=== PATIENT | male | born 1990 | race Hispanic/Latino ===

== ENCOUNTER 2020-07-24 05:44 | Emergency (ER) | payer BC, SELFPAY ==
[2020-07-24 06:16] LABS: Absolute Lymphocytes (CBC) 1.3 K/uL (0.7-4.9); Hematocrit 42.5 % (39.6-49.0); Lymphocytes % 15.9 % (15.3-44.8); MPV 7.4 fL (7.6-11.3)
[2020-07-24] MEDS ORDERED: NA CHLORIDE 0.9% 1,000 ML ONE (06:20)
[2020-07-24] MEDS ORDERED: KETOROLAC 30 MG/ML INJ ONE (06:20)
[2020-07-24] MEDS ORDERED: PROMETHAZINE INJ 25 MG/ML AMP ONE (06:20)
[2020-07-24 06:35] LABS: ALT/SGPT 69 U/L (12-78); AST/SGOT 35 U/L (15-37); Albumin 3.8 g/dL (3.4-5.0); Alkaline Phosphatase 116 U/L (45-117); BUN Blood Urea Nitrogen 13 mg/dL (7-18); Bicarbonate 27 mmol/L (21-32); Bilirubin Direct < 0.1 mg/dL (0-0.2); Bilirubin Total 0.3 mg/dL (0.2-1.0); Glucose Level 121 mg/dL (74-106); Lipase 250 U/L (73-393); Potassium 3.9 mmol/L (3.5-5.1); Protein, Total 8.3 g/dL (6.4-8.2); Sodium Level 141 mmol/L (136-145)
--- NOTE | 2020-07-24 07:21 | RAD REPORT ---
EXAM DESCRIPTION: CT - Stone Protocol - 07/24/2020 7:07 am CLINICAL HISTORY: FLANK PAIN COMPARISON: Abdomen Pelvis W Contrast dated 12/27/2015 TECHNIQUE: Axial 5 mm thick images were obtained without oral or IV contrast. The [id number] span s the entirety of the system including uppermost abdomen and lung bases. All CT scans are performed using dose optimization technique as appropriate and may include automated exposure control or mA/KV adjustment according to patient size. FINDINGS: Mild right-sided hydronephrosis of the pelvis and proximal ureter secondary to a 3 mm ston e. No other obstructing or nonobstructing calculi. No suspicious renal masses. Isodense masses and py elonephritis are not excluded on a stone protocol CT scan. No significant adrenal finding. No urinary bladder suspicious finding. Imaged portions of the liver, spleen and pancreas show no suspicious findings on non-contrast imaging . No gallbladder or biliary tree abnormality identified. No suspicious bowel findings. Appendix is normal. No hernia, mass or bulky lymphadenopathy noted. No free air, free fluid or inflammatory stranding. No significant bony abnormality. IMPRESSION: Mild right-sided hydronephrosis secondary to a 3 mm stone in the proximal right ureter. Isodense masses and pyelonephritis are not excluded on stone protocol technique.
--- NOTE | 2020-07-24 07:27 | ER ---
Nurse's Notes [facility] Name: Abhishek Warren Age: 30 yrs Sex: Male : 1990 Arrival Date: 07/24/2020 Time: 05:46 Bed 7 Private MD: Diagnosis: Ureterolithiasis Presentation: 07/24 06:00 Chief complaint: Patient states: I woke up around 2-3AM having this dull pain on my rr5 side going to the front. I vomited twice. no fever, no diarrhea stated. Coronavirus screen: Client denies travel out of the [place] in the last 14 days. At this time, the client does not indicate any symptoms associated with coronavirus-19. Ebola Screen: Patient negative for fever greater than or equal to 101.5 degrees Fahrenheit, and additional compatible Ebola Virus Disease symptoms Patient denies exposure to infectious person. Patient denies travel to an Ebola-affected area in the 21 days before illness onset. Initial Sepsis Screen: Does the patient meet any 2 criteria? No. Patient's initial sepsis screen is negative. Does the patient have a suspected source of infection? No. Patient's initial sepsis screen is negative. Risk Assessment: Do you want to hurt yourself or someone else? Patient reports no desire to harm self or others. Onset of symptoms was July 24, 2020 at 02:00. 06:00 Method Of Arrival: Ambulatory rr5 06:00 Acuity: PHANI 3 rr5 Historical: - Allergies: 06:04 No Known Allergies; rr5 - Home Meds: 06:04 adhd medication [Active]; rr5 - PMHx: 06:04 Asthma; ADHD; rr5 - PSHx: 06:04 None; rr5 - Immunization history:: Adult Immunizations up to date. - Social history:: Smoking status: unknown Patient/guardian denies using alcohol, street drugs. Screenin:06 Abuse screen: Denies threats or abuse. Denies injuries from another. Nutritional rr5 screening: No deficits noted. Tuberculosis screening: No symptoms or risk factors identified. Fall Risk IV access (20 points). Total [place] Fall Scale indicates No Risk (0-24 pts). Assessment: 06:00 General: Appears in no apparent distress. uncomfortable, Behavior is calm, cooperative, rr5 appropriate for age. Pain: Complains of pain in right flank Pain radiates to right upper quadrant and right lower quadrant Pain Quality of pain is described as dull, Pain began suddenly, Is intermittent. Neuro: Level of Consciousness is awake, alert, obeys commands, Oriented to person, place, time, situation. Cardiovascular: Capillary refill < 3 seconds Patient's skin is warm and dry. Respiratory: Airway is patent Respiratory effort is even, unlabored, Respiratory pattern is regular, symmetrical. GI: Abdomen is round obese, Abd is soft and non tender Reports lower abdominal pain, upper abdominal pain, vomiting. : Reports pain in right flank(s). EENT: No signs and/or symptoms were reported regarding the EENT system. Derm: Skin is intact, is healthy with good turgor, Skin temperature is warm. Musculoskeletal: Circulation, motion, and sensation intact. Capillary refill < 3 seconds. 06:30 Reassessment: Patient appears in no apparent distress at this time. Patient is alert, rr5 oriented x 3, equal unlabored respirations, skin warm/dry/pink. Patient states symptoms have improved. 07:38 Reassessment: Patient appears in no apparent distress at this time. Patient and/or ph family updated on plan of care and expected duration. Pain level reassessed. Patient is alert, oriented x 3, equal unlabored respirations, skin warm/dry/pink. Pt d/c home w/ prescriptions. Vital Signs: 06:00 BP 142 / 88; Pulse 89; Resp 19; Temp 98.1; Pulse Ox 98% ; Weight 158.76 kg; Height 5 rr5 ft. 10 in. (177.80 cm); Pain 5/10; 06:44 BP 131 / 62; Pulse 78; Resp 17; Pulse Ox 99% ; Pain 2/10; rr5 07:38 BP 127 / 68; Pulse 71; Resp 18; Temp 97.8; Pulse Ox 100% on R/A; ph 06:00 Body Mass Index 50.22 (158.76 kg, 177.80 cm) rr5 ED Course: 05:46 Patient arrived in ED. ag3 05:47 Feroz Singh MD is Attending Physician. 7 06:00 Ramy Nathan, RN is Primary Nurse. rr5 06:03 Triage completed. rr5 06:04 Arm band placed on right wrist. rr5 06:06 Patient has correct armband on for positive identification. Bed in low position. Call rr5 light in reach. Pulse ox on. NIBP on. 06:06 Inserted saline lock: 20 gauge in right antecubital area, using aseptic technique. rr5 ,using aseptic technique. inserted by mel BUTCHER Blood collected. 07:07 CT Stone Protocol In Process Unspecified. EDMS 07:26 Daryl Santiago MD is Referral Physician. [facility] 07:39 No provider procedures requiring assistance completed. IV discontinued, intact, ph bleeding controlled, No redness/swelling at site. Pressure dressing applied. Administered Medications: 06:05 Drug: Phenergan 12.5 mg Route: IVP; Site: right antecubital; rr5 06:45 Follow up: Response: No adverse reaction rr5 06:05 Drug: NS 0.9% 1000 ml Route: IV; Rate: 1000 ml; Site: right antecubital; rr5 06:47 Follow up: Response: No adverse reaction; IV Status: Completed infusion; IV Intake: rr5 1000ml 06:07 Drug: TORadol 30 mg Route: IVP; Site: right antecubital; rr5 06:45 Follow up: Response: No adverse reaction rr5 Intake: 06:47 IV: 1000ml; Total: 1000ml. rr5 Outcome: 07:26 Discharge ordered by . mh7 07:39 Discharged to home ambulatory. ph 07:39 Condition: good 07:39 Discharge instructions given to patient, Instructed on discharge instructions, follow up and referral plans. medication usage, Demonstrated understanding of instructions, follow-up care, medications, Prescriptions given X 3. 07:39 Patient left the ED. ph Signatures: Dispatcher [employer] EDMT Hue Costa, RN RN ph Lucero Smith Raymond, RN RN rr5 Feroz Singh MD MD 7
--- NOTE | 2020-07-24 07:27 | EDPHYS ---
Physician Documentation [facility] Name: Abhishek Warren Age: 30 yrs Sex: Male : 1990 Arrival Date: 07/24/2020 Time: 05:46 Bed 7 Private MD: ED Physician Feroz Singh HPI: 07/24 06:01 This 30 yrs old Male presents to ER via Unassigned with complaints of mh7 Abdominal Pain. 06:01 The patient complains of pain in the right flank. The pain radiates to the right lower mh7 abdomen. Onset: The symptoms/episode began/occurred today, at 02:00. Modifying factors: The symptoms are alleviated by nothing. the symptoms are aggravated by movement. Associated signs and symptoms: Pertinent positives: nausea, vomiting, Pertinent negatives: diarrhea, dizziness, dysuria, fever, urinary frequency, headache, hematuria, pain radiating to the lower extremities. Severity of pain: At its worst the pain was moderate today, in the emergency department the pain is unchanged. Historical: - Allergies: 06:04 No Known Allergies; rr5 - Home Meds: 06:04 adhd medication [Active]; rr5 - PMHx: 06:04 Asthma; ADHD; rr5 - PSHx: 06:04 None; rr5 - Immunization history:: Adult Immunizations up to date. - Social history:: Smoking status: unknown Patient/guardian denies using alcohol, street drugs. ROS: 06:01 Constitutional: Negative for fever, chills, and weight loss, Eyes: Negative for injury, mh7 pain, redness, and discharge, ENT: Negative for injury, pain, and discharge, Neck: Negative for injury, pain, and swelling, Cardiovascular: Negative for chest pain, palpitations, and edema, Respiratory: Negative for shortness of breath, cough, wheezing, and pleuritic chest pain, : Negative for injury, bleeding, discharge, and swelling, MS/Extremity: Negative for injury and deformity, Skin: Negative for injury, rash, and discoloration, Neuro: Negative for headache, weakness, numbness, tingling, and seizure, Psych: Negative for depression, anxiety, suicide ideation, homicidal ideation, and hallucinations, Allergy/Immunology: Negative for hives, rash, and allergies, Endocrine: Negative for neck swelling, polydipsia, polyuria, polyphagia, and marked weight changes, Hematologic/Lymphatic: Negative for swollen nodes, abnormal bleeding, and unusual bruising. Exam: 06:01 Head/Face: Normocephalic, atraumatic. Eyes: Pupils equal round and reactive to light, mh7 extra-ocular motions intact. Lids and lashes normal. Conjunctiva and sclera are non-icteric and not injected. Cornea within normal limits. Periorbital areas with no swelling, redness, or edema. Neck: Trachea midline, no thyromegaly or masses palpated, and no cervical lymphadenopathy. Supple, full range of motion without nuchal rigidity, or vertebral point tenderness. No Meningismus. Chest/axilla: Normal chest wall appearance and motion. Nontender with no deformity. No lesions are appreciated. Cardiovascular: Regular rate and rhythm with a normal S1 and S2. No gallops, murmurs, or rubs. Normal PMI, no JVD. No pulse deficits. Respiratory: Lungs have equal breath sounds bilaterally, clear to auscultation and percussion. No rales, rhonchi or wheezes noted. No increased work of breathing, no retractions or nasal flaring. 06:01 Skin: Warm, dry with normal turgor. Normal color with no rashes, no lesions, and no evidence of cellulitis. MS/ Extremity: Pulses equal, no cyanosis. Neurovascular intact. Full, normal range of motion. Neuro: Awake and alert, GCS 15, oriented to person, place, time, and situation. Cranial nerves II-XII grossly intact. Motor strength 5/5 in all extremities. Sensory grossly intact. Cerebellar exam normal. Normal gait. Psych: Awake, alert, with orientation to person, place and time. Behavior, mood, and affect are within normal limits. 06:01 Constitutional: The patient appears in no acute distress, alert, awake, uncomfortable. 06:01 Abdomen/GI: Inspection: obese Bowel sounds: normal, in all quadrants, Palpation: mild abdominal tenderness, in the right flank, Rectal exam: the exam is deferred, because of patient request, Indicators: McBurney's point is not tender, Chery's sign is negative, Rovsing's sign is negative, Obturator sign is negative, Psoas sign is negative, Liver: no appreciated palpable abnormalities, Hernia: not appreciated. 06:01 Back: normal spinal alignment noted, CVA tenderness, that is mild, is noted on the right, muscle spasm, is not present. Vital Signs: 06:00 BP 142 / 88; Pulse 89; Resp 19; Temp 98.1; Pulse Ox 98% ; Weight 158.76 kg; Height 5 rr5 ft. 10 in. (177.80 cm); Pain 5/10; 06:44 BP 131 / 62; Pulse 78; Resp 17; Pulse Ox 99% ; Pain 2/10; rr5 07:38 BP 127 / 68; Pulse 71; Resp 18; Temp 97.8; Pulse Ox 100% on R/A; ph 06:00 Body Mass Index 50.22 (158.76 kg, 177.80 cm) rr5 MDM: 07:24 Differential diagnosis: nephrolithiasis, pyelonephritis, UTI, diverticulitis. Data [facility] reviewed: vital signs, nurses notes, lab test result(s), CBC, electrolytes, urinalysis, radiologic studies, CT scan. Data interpreted: Pulse oximetry: on room air is 99 %. Interpretation: normal. Counseling: I had a detailed discussion with the patient and/or guardian regarding: the historical points, exam findings, and any diagnostic results supporting the discharge/admit diagnosis, lab results, radiology results, the need for outpatient follow up, a urologist, to return to the emergency department if symptoms worsen or persist or if there are any questions or concerns that arise at home. Response to treatment: the patient's symptoms have resolved after treatment, the patient's blood pressure is in an acceptable range, mental status has returned to baseline, the patient no longer shows bradycardia, the patient is not short of breath, the patient is not tachycardic, the patient's pain is gone, the patient's temperature has normalized. 07:26 Patient medically screened. [facility] 07/24 05:59 Order name: Basic Metabolic Panel; Complete Time: 06:39 [facility] 07/24 05:59 Order name: CBC with Diff; Complete Time: 06:39 [facility] 07/24 05:59 Order name: Hepatic Function; Complete Time: 06:39 [facility] 07/24 05:59 Order name: Lipase; Complete Time: 06:39 [facility] 07/24 06:00 Order name: CT Stone Protocol; Complete Time: 07:22 [facility] 07/24 07:24 Order name: Urine Dipstick--Ancillary (enter results) 07/24 05:59 Order name: IV Saline Lock; Complete Time: 06:06 7 07/24 05:59 Order name: Labs collected and sent; Complete Time: 06:06 7 07/24 05:59 Order name: Urine Dipstick-Ancillary (obtain specimen); Complete Time: 07:24 mh7 Administered Medications: 06:05 Drug: Phenergan 12.5 mg Route: IVP; Site: right antecubital; rr5 06:45 Follow up: Response: No adverse reaction rr5 06:05 Drug: NS 0.9% 1000 ml Route: IV; Rate: 1000 ml; Site: right antecubital; rr5 06:47 Follow up: Response: No adverse reaction; IV Status: Completed infusion; IV Intake: rr5 1000ml 06:07 Drug: TORadol 30 mg Route: IVP; Site: right antecubital; rr5 06:45 Follow up: Response: No adverse reaction rr5 Disposition: 07/24/20 07:26 Discharged to Home. Impression: Ureterolithiasis. - Condition is Stable. - Discharge Instructions: Kidney Stones, [id number]. - Prescriptions for Zofran ODT 4 mg Oral tablet,disintegrating - place 1 tablet by TRANSLINGUAL route every 8 hours As needed; 10 tablet. ketorolac 10 mg Oral tablet - take 1 tablet by ORAL route every 8 hours As needed not to exceed 40 mg in 24hrs; 15 tablet. Flomax 0.4 mg Oral Capsule, Sust. Release 24 hr - take 1 capsule by ORAL route once daily 1/2 hour following the same meal each day; 7 capsule. - Medication Reconciliation Form, Thank You Letter, Antibiotic Education, Prescription Opioid Use form. - Follow up: Private Physician; When: 1 - 2 days; Reason: Worsening of condition, Recheck today's complaints, Continuance of care, Re-evaluation by your physician. Follow up: Daryl Santiago MD; When: 1 - 2 days; Reason: Worsening of condition, Recheck today's complaints. - Problem is new. - Symptoms have improved. Signatures: Dispatcher [employer] Hue Huber RN RN Ramy Nathan RN RN rr5 Feroz Singh MD MD 7 Corrections: (The following items were deleted from the chart) 07:39 07:26 07/24/2020 07:26 Discharged to Home. Impression: Ureterolithiasis. Condition is ph Stable. Forms are Medication Reconciliation Form, Thank You Letter, Antibiotic Education, Prescription Opioid Use. Follow up: Private Physician; When: 1 - 2 days; Reason: Worsening of condition, Recheck today's complaints, Continuance of care, Re-evaluation by your physician. Follow up: Daryl Santiago; When: 1 - 2 days; Reason: Worsening of condition, Recheck today's complaints. Problem is new. Symptoms have improved. mh7
[2020-07-24 08:09] LABS: Urine Blood 3+ (NEG); Urine Glucose NEGATIVE (NEG); Urine Protein 1+ (NEG); Urine Specific Gravity 1.025 (1.005-1.030); Urine pH 5.5 (5.0-7.0)
[2020-07-26 22:09] VITALS: BP 127/68; TEMP 97.8; O2SAT 100
== END 2020-07-24 07:39 | disposition home or self-care (01) ==
LOC: ER 05:44
DX: N20.1 Calculus of ureter (principal); F90.9 Attention-deficit hyperactivity disorder, unspecified type
CPT/HCPCS: 36415; 74176; 76377; 80048; 80076; 81003; 83690; 85025; 96361; 96374; 96375; 99284; J2550; J7030

== ENCOUNTER 2022-09-17 20:04 | Emergency (ER) | payer SELFPAY ==
--- OUTSIDE RECORDS SUMMARY | 2022-09-17 20:12 | XMS REPORT | Continuity of Care Document ---
:1990 Author Organization [facility] t Address [address] [place] [address] Care Team Providers Name Role Phone JERAD GEORGE Attending Clinician Unavailable LAB90 Attending Clinician Unavailable Blaze PEREZ, Alyce Hernnadez Attending Clinician [phone] Problems Condition Condition Condition Status Onset Resolution Last Treating Co mments Source Name Details Category Date Date Treatment Clinician Date Right Right Disease Active 2021-08 Eugenie wrist pain wrist pain 0-21 Se ybold 00:00: - 00 Externa l Attention Attention Disease Active 2021-08 Rik sey deficit deficit 0-21 Seybold hyperactiv hyperactiv 00:00: - ity ity 00 Externa disorder disorder l (ADHD), (ADHD), predominan predominan tly 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 persistent persistent 04-28 Se ybold asthma asthma 00:00: - without without 00 Externa complicati complicati l on on Seasonal Seasonal Disease Active Kelse y allergic allergic 04-28 Seybol d rhinitis rhinitis 00:00: - due to due to 00 Externa pollen pollen l AALIYAH AALIYAH Disease Active Eugenie (obstructi (obstructi 04-28 Se ybold ve sleep ve sleep 00:00: - apnea) apnea) 00 Externa l Class 3 Class 3 Disease Active Eugenie severe severe 04-28 Seybold obesity obesity 00:00: - due to due to 00 Externa excess excess l calories calories without without serious serious comorbidit comorbidit y with y with body mass body mass index index (BMI) of (BMI) of 50.0 to 50.0 to 59.9 in 59.9 in adult adult Chronic Chronic Disease Active Eugenie cough cough 04-28 Seybold 00:00: - 00 Externa l No known No known Disease Kelse y active active Seybold problems problems Allergies, Adverse Reactions, Alerts Allergy Allergy Status Severity Reaction(s) Onset Inactive Treating Comm ents Source Name Type Date Date Clinician Seasonal Propensi Active Shortness of Eugenie Ic ty to Breath 8 Seybold adverse 00:00: - reaction 00 Externa s l Social History Social Habit Start Date Stop Date Quantity Comments Source History SDOH Eugenie Paiz ld - Alcohol Frequency Externa l History SDOH Eugenie Paiz ld - Alcohol Std Drinks Skein Dyer al History ONUROH Eguenie Langfordo ld - Alcohol Binge External Exposure to Not sure Eugenie Iron prather SARS-CoV-2 (event) Alcohol intake 2022-06-23 2022-06-23 Current drinker Julio baxter ybold - 00:00:00 00:00:00 of alcohol External (finding) Tobacco use and 2022-04-28 2022-04-28 Smokeless tobacco Brandin gutierrez Seybold - exposure 00:00:00 00:00:00 non-user External Alcohol Comment 2022-04-28 2022-04-28 rarely Eugenieaj sauer - 00:00:00 00:00:00 External Education 2022-04-28 2022-04-28 16 Eugenieja Lara - 00:00:00 00:00:00 External Sex [birth year] At [birth year] M Eugenie sauer - 00:00:00 00:00:00 External Smoking Status Start Date Stop Date Source Never smoked tobacco Eugenie Primitivo linton - External Medications Ordered Filled Start Stop Current Ordering Indication Dosage Frequency Signature Comments Components Source Medication Medication Date Date Medication? Clinician (SIG) Name Name Cetirizine 2021-08 Yes 10mg Take 10 mg K elsey 10 MG oral 1-18 by mouth Seybo ld Tablet 09:28: daily - 30 Externa l FLUTICASONE 2021-08 Yes 1{spray Use 1 Ke lsey PROPIONATE, 1-18 } spray in Seyb old NASAL, 50 09:28: each - MCG/ACT 30 nostril Externa nasal daily l Suspension Methylpheni 2021-08 Yes [id number] 36mg Take 1 Eugenie date HCl 36 1-18 tablet (36 Se ybold MG oral Tab 00:00: mg total) - CR 00 by mouth Externa every l morning predniSONE 2021-08 Yes [id number] 10mg Take 1 Eugenie (DELTASONE) 1-18 9100 tablet (10 Se ybold 10 MG oral 00:00: mg total) - tablet 00 by mouth Externa daily l Methylpheni 2021-08- No [id number] 27mg Take 1 Eugenie date HCl 27 0-21 11-18 tablet (27 S eybold MG oral Tab 00:00: 00:00 mg total) - CR 00 :00 by mouth Externa every l morning predniSONE Yes [id number] 10mg Take 1 Eugenie (DELTASONE) 9-23 tablet (10 Se ybold 10 MG oral 00:00: mg total) - tablet 00 by mouth Externa daily l Famotidine Yes [id number] 20mg Take 1 Eugenie (Pepcid) 20 9-23 tablet (20 Se ybold MG oral 00:00: mg total) - tablet 00 by mouth 2 Externa times l daily Benzonatate Yes [id number] 100mg Q.[id number] Take 1 Eugenie (Tessalon 9-23 [id number] capsule S eybold Perles) 100 00:00: 3D (100 mg - MG oral 00 total) by Externa Capsule mouth 3 l times daily as needed for cough Fluticasone Yes [id number] 1{puff} Inhale 1 Eugenie -Salmeterol 9-23 puff into Sey bold 113-14 00:00: the lungs - MCG/ACT 00 2 times Externa inhalation daily l AEROSOL POWDER, BREATH ACTIVATED Famotidine Yes [id number] 20mg Take 1 Eugenie (Pepcid) 20 9-23 tablet (20 Se ybold MG oral 00:00: mg total) - tablet 00 by mouth 2 Externa times l daily Fluticasone 0 Yes [id number] 1{puff} Inhale 1 Eugenie -Salmeterol 04-28 puff into Sey bold 113-14 00:00: the lungs - MCG/ACT 00 2 times Externa inhalation daily l AEROSOL POWDER, BREATH ACTIVATED Benzonatate 0 2021- No [id number] 100mg Q.[id number] Take 1 Eugenie (Tessalon 04-28 11-18 [id number] capsule Seybold Perles) 100 00:00: 00:00 3D (100 mg - MG oral 00 :00 total) by Externa Capsule mouth 3 l times daily as needed for cough Nitrofurant 0 2021- No [id number] 100mg Take 1 Eugenie oin Monohyd 03-13 capsule Seyb old Macro 00:00: 00:00 (100 mg - (Macrobid) 00 :00 total) by Exte rna 100 MG oral mouth 2 l Capsule times daily methylPREDN 0 Yes [id number] 1{tayler} Take 1 tayler Eugenie ISolone 4 1-04 by mouth Seybol d MG oral 00:00: See Admin Tablet 00 Instructio Therapy ns Use as Pack directed Albuterol Yes [id number] 2{puff} Q4H Inhale 2 Eugenie HFA 108 (90 1-04 puffs into Se ybold Base) 00:00: the lungs MCG/ACT IN 00 every 4 AERS hours as needed for wheezing or shortness of breath Albuterol 0 Yes [id number] 2{puff} Q4H Inhale 2 Eugenie HFA 108 (90 1-04 puffs into Se ybold Base) 00:00: the lungs - MCG/ACT IN 00 every 4 Skein Dyer a AERS hours as l needed for wheezing or shortness of breath Albuterol 2021-0 Yes [id number] 2{puff} Q4H Inhale 2 Eugenie HFA 108 (90 1-04 puffs into Se ybold Base) 00:00: the lungs - MCG/ACT IN 00 every 4 Skein Dyer a AERS hours as l needed for wheezing or shortness of breath methylPREDN 2021-0 202- No [id number] 1{tayler} Take 1 tayler Eugenie ISolone 4 1-11 12- by mouth Seybo ld MG oral 00:00: 00:00 See Admin - Tablet 00 :00 Instructio Externa Therapy ns Use as l Pack directed Azithromyci 2021- No [id number] Take 2 Eugenie n 250 MG 08-09 tablets by Seyb old oral Tablet 00:00: 05:59 mouth on 00 :00 day 1 then 1 tablet by mouth daily for 4 days thereafter . Vital Signs Vital Name Observation Time Observation Value Comments Source Systolic blood 2022-06-23 15:25:00 120 mm[Hg] Eugenie Seybold - pressure External Diastolic blood 2022-06-23 15:25:00 58 mm[Hg] Kelse y Seybold - pressure External Heart rate 2022-06-23 15:25:00 93 /min Eugenie S eybold - External Body temperature 2022-06-23 15:25:00 36.78 Shahla Aida ey Seybold - External Respiratory rate 2022-06-23 15:25:00 16 /min Aida ey Seybold - External Body height 2022-06-23 15:25:00 177.8 cm Eugenie S eybold - External Body weight 2022-06-23 15:25:00 187.336 kg Eugenie S eybold - External BMI 2022-06-23 15:25:00 59.26 kg/m2 Eugenie S eybold - External Systolic blood 2022-04-28 13:19:00 118 mm[Hg] Eugenie Seybold - pressure External Diastolic blood 2022-04-28 13:19:00 62 mm[Hg] Kelse y Seybold - pressure External Heart rate 2022-04-28 13:19:00 98 /min Eugenie S eybold - External Body temperature 2022-04-28 13:19:00 36.89 Shahla Aida ey Seybold - External Respiratory rate 2022-04-28 13:19:00 14 /min Aida ey Seybold - External Body height 2022-04-28 13:19:00 177.8 cm Eugenie S eybold - External Body weight 2022-04-28 13:19:00 180.985 kg Eugenie S eybold - External BMI 2022-04-28 13:19:00 57.25 kg/m2 Eugenie S eybold - External Procedures This patient has no known procedures. Encounters Start End Encounter Admission Attending Care Care Encounter Source Date/Time Date/Time Type Type Clinicians Facility Department ID 2022-09-22 2022-09-22 Outpatient EUGENIE GEORGE [id number] Eugenie 08:30:00 08:30:00 JERAD Seybol d 2022-06-23 2022-06-23 Outpatient EUGENIE GEORGE [id number] Eugenie 09:15:00 09:15:00 JERAD Seybol d 2022-05-26 2022-05-26 Outpatient EUGENIE GEORGE [id number] Eugenie 08:45:00 08:45:00 JERAD Seybol d 2022-04-28 2022-04-28 Outpatient EUGENIE GEORGE [id number] Eugenie 08:15:00 08:15:00 JERAD Seybol d 2022-03-13 2022-03-13 Outpatient LAB90 EUGENIE BANGURA [id number] Eugenie 15:45:00 15:45:00 Seybol d 2022-03-13 2022-03-13 Office Robbie Thakur [id number] Eugenie 15:00:00 15:30:00 Visit Alyce Jacobs [id number] Se cristiane Fieldyi [id number] 2021-08-09 2021-08-09 Telemedici Robbie Thakur [id number] Eugenie 14:30:00 14:37:23 ne Alyce Jacobs [id number] Se cristiane Westbrookogyi [id number] Results This patient has no known results.
[2022-09-17] MEDS ORDERED: ALBUTEROL 2.5 MG/3 ML NEB SOL ONE (20:37)
[2022-09-17] MEDS ORDERED: predniSONE 20 MG TAB ONE (20:37)
[2022-09-17] MEDS ORDERED: FAMOTIDINE 20 MG TAB ONE (20:38)
--- NOTE | 2022-09-17 21:39 | RAD REPORT ---
EXAM DESCRIPTION: RAD - Chest Pa And Lat (2 Views) - 09/17/2022 9:29 pm CLINICAL HISTORY: COUGH Chest pain. COMPARISON: No comparisons FINDINGS: The lungs are clear. The heart is normal in size. No displaced fractures. IMPRESSION: No acute or concerning finding suspected.
[2022-09-17 21:51] LABS: SARS-COV-2 RT PCR NEGATIVE (NEGATIVE)
--- NOTE | 2022-09-17 21:53 | EDPHYS ---
Physician Documentation [facility] Name: Abhishek Warren Age: 32 yrs Sex: Male : 1990 Arrival Date: 09/17/2022 Time: 20:07 Bed 13 Private MD: ED Physician Gael Diggs HPI: 09/17 20:38 This 32 yrs old Male presents to ER via Ambulatory with complaints of snw Breathing Difficulty, Congestion, Dizziness, Headache. 20:38 The patient has shortness of breath at rest. Onset: The symptoms/episode began/occurred snw suddenly, and became persistent. Duration: The symptoms are continuous. Associated signs and symptoms: Pertinent positives: non-productive cough. Severity of symptoms: At their worst the symptoms were moderate severe. pt has hx of asthma, no exacerbations in a long time. Today with SOB, used inhaler three hours ago. Forgot inhaler on the way to ED. The patient has not recently seen a physician. Historical: - Allergies: 20:20 No Known Allergies; ll3 - Home Meds: 20:20 ADHD medication [Active]; ll3 - PMHx: 20:20 adhd; Asthma; Sleep apnea; ll3 - PSHx: 20:20 None; ll3 - Immunization history:: Client reports receiving the 2nd dose of the Covid vaccine. - Social history:: Smoking status: Patient denies any tobacco usage or history of. ROS: 20:37 Eyes: Negative for injury, pain, redness, and discharge, ENT: Negative for injury, snw pain, and discharge, Neck: Negative for injury, pain, and swelling, Cardiovascular: Negative for chest pain, palpitations, and edema. 20:37 Abdomen/GI: Negative for abdominal pain, nausea, vomiting, diarrhea, and constipation, Back: Negative for injury and pain, : Negative for injury, bleeding, discharge, and swelling, MS/Extremity: Negative for injury and deformity, Skin: Negative for injury, rash, and discoloration, Neuro: Negative for headache, weakness, numbness, tingling, and seizure, Psych: Negative for depression, anxiety, suicide ideation, homicidal ideation, and hallucinations. 20:37 Constitutional: Positive for body aches, fatigue, malaise, three days ago with URI, taking nyquil, dayquil, and nasal spray. 20:37 Respiratory: Positive for cough, with no reported sputum, dyspnea on exertion, wheezing, expiratory. Exam: 20:37 Head/Face: Normocephalic, atraumatic. Eyes: Pupils equal round and reactive to light, snw extra-ocular motions intact. Lids and lashes normal. Conjunctiva and sclera are non-icteric and not injected. Cornea within normal limits. Periorbital areas with no swelling, redness, or edema. ENT: Nares patent. No nasal discharge, no septal abnormalities noted. Tympanic membranes are normal and external auditory canals are clear. Oropharynx with no redness, swelling, or masses, exudates, or evidence of obstruction, uvula midline. Mucous membranes moist. Neck: Trachea midline, no thyromegaly or masses palpated, and no cervical lymphadenopathy. Supple, full range of motion without nuchal rigidity, or vertebral point tenderness. No Meningismus. Chest/axilla: Normal chest wall appearance and motion. Nontender with no deformity. No lesions are appreciated. 20:37 Abdomen/GI: Soft, non-tender, with normal bowel sounds. No distension or tympany. No guarding or rebound. No evidence of tenderness throughout. Back: No spinal tenderness. No costovertebral tenderness. Full range of motion. Skin: Warm, dry with normal turgor. Normal color with no rashes, no lesions, and no evidence of cellulitis. MS/ Extremity: Pulses equal, no cyanosis. Neurovascular intact. Full, normal range of motion. Neuro: Awake and alert, GCS 15, oriented to person, place, time, and situation. Cranial nerves II-XII grossly intact. Motor strength 5/5 in all extremities. Sensory grossly intact. Cerebellar exam normal. Normal gait. Psych: Awake, alert, with orientation to person, place and time. Behavior, mood, and affect are within normal limits. 20:37 Constitutional: The patient appears alert, awake, anxious, obese, restless. 20:37 Cardiovascular: Rate: tachycardic, Rhythm: regular, Heart sounds: normal. 20:37 Respiratory: mild respiratory distress is noted, Breath sounds: wheezing: expiratory is heard diffusely. Vital Signs: 20:16 BP 134 / 73; Pulse 101; Resp 20; Temp 99.2(O); Pulse Ox 100% on R/A; Weight 172.37 kg ll3 (R); Height 5 ft. 0 in. (152.40 cm) (R); Pain 0/10; 20:16 Body Mass Index 74.21 (172.37 kg, 152.40 cm) ll3 MDM: 20:14 Patient medically screened. snw 21:57 Differential diagnosis: asthma, Bronchitis CHF exacerbation, Chronic Obstructive snw Pulmonary Disease pneumonia. Data reviewed: vital signs, nurses notes, lab test result(s), radiologic studies. Counseling: I had a detailed discussion with the patient and/or guardian regarding: the historical points, exam findings, and any diagnostic results supporting the discharge/admit diagnosis, lab results, radiology results, the need for outpatient follow up, to return to the emergency department if symptoms worsen or persist or if there are any questions or concerns that arise at home. Special discussion: Based on the history and exam findings, there is no indication for further emergent testing or inpatient evaluation. I discussed with the patient/guardian the need to see the primary care provider for further evaluation of the symptoms. 09/17 20:13 Order name: COVID-19/FLU A+B snw 09/17 21:51 Order name: COVID-19/FLU A+B; Complete Time: 21:52 EDMS 09/17 20:13 Order name: Chest Pa And Lat (2 Views) XRAY snw 09/17 21:40 Order name: RAD; Complete Time: 21:52 EDMS Administered Medications: 21:08 Drug: predniSONE 40 mg Route: PO; ll3 22:00 Follow up: Response: No adverse reaction eh3 21:08 Drug: Pepcid (famotidine) 20 mg Route: PO; ll3 22:00 Follow up: Response: No adverse reaction eh3 21:08 Drug: Albuterol 2.5 mg Route: Inhalation; ll3 22:00 Follow up: Response: Wheezing diminished eh3 21:50 Drug: Magnesium 400 mg Route: PO; ha1 22:07 Follow up: Response: No adverse reaction ha1 21:50 Drug: Zithromax (azithromycin) 500 mg Route: PO; ha1 22:07 Follow up: Response: No adverse reaction ha1 Disposition: 23:26 Co-signature as Attending Physician, Gael Diggs DO I reviewed the patient's care ms3 provided by the Advanced Practice Provider and agree with the diagnosis and treatment plan. Disposition Summary: 09/17/22 21:53 Discharge Ordered Location: Home snw Condition: Stable snw Diagnosis - Unspecified asthma with (acute) exacerbation snw Followup: snw - With: Emergency Department - When: As needed - Reason: Worsening of condition Followup: snw - With: Private Physician - When: 2 - 3 days - Reason: Recheck today's complaints, Continuance of care, Re-evaluation by your physician Discharge Instructions: - Discharge Summary Sheet snw - Asthma Attack snw Forms: - Medication Reconciliation Form snw - Thank You Letter snw - Antibiotic Education snw - Prescription Opioid Use snw Prescriptions: - albuterol sulfate 90 mcg/actuation Inhalation HFA aerosol inhaler - inhale 2 puff by INHALATION route every 6 hours; 1 vial; Refills: 0, Product snw Selection Permitted - Zyrtec 10 mg Oral Tablet - take 1 tablet by ORAL route once daily As needed; 20 tablet; Refills: 0, snw Product Selection Permitted - Prednisone 20 mg Oral Tablet - take 2 tablets by ORAL route once daily for 5 days; 10 tablet; Refills: 0, snw Product Selection Permitted - Pepcid 20 mg Oral Tablet - take 1 tablet by ORAL route once daily; 20 tablet; Refills: 0, Product snw Selection Permitted - Zithromax 500 mg Oral Tablet - take 1 tablet by ORAL route once daily for 5 days; 5 tablet; Refills: 0, snw Product Selection Permitted Signatures: Dispatcher [employer] EDCarla Avelar, GAIL-C ORTHOTICS PROSTHETICS TECHNICIAN-Csnw Gael Diggs DO DO ms3 Masha Navarro RN RN ll3 Judy Salcedo RN RN ha1 Abbi Costa RN eh3
--- NOTE | 2022-09-17 21:53 | ER ---
Nurse's Notes [facility] Name: Abhishek Warren Age: 32 yrs Sex: Male : 1990 Arrival Date: 09/17/2022 Time: 20:07 Bed 13 Private MD: Diagnosis: Unspecified asthma with (acute) exacerbation Presentation: 09/17 20:16 Chief complaint: Patient states: C/o nasal congestion, and cough X 3 days, states today ll3 cough got worse and started wheezing, states used inhaler throughout day and eventually felt like the inhaler was not helping, reports SOB at this time, 02 100% on RA. Coronavirus screen: Vaccine status: Patient reports receiving the 2nd dose of the covid vaccine. cough unrelated to allergies, difficulty breathing. Ebola Screen: No symptoms or risks identified at this time. Initial Sepsis Screen: Does the patient meet any 2 criteria? No. Patient's initial sepsis screen is negative. Does the patient have a suspected source of infection? No. Patient's initial sepsis screen is negative. Risk Assessment: Do you want to hurt yourself or someone else? Patient reports no desire to harm self or others. Onset of symptoms was September 14, 2022. 20:16 Method Of Arrival: Ambulatory ll3 20:16 Acuity: PHANI 3 ll3 Historical: - Allergies: 20:20 No Known Allergies; ll3 - Home Meds: 20:20 ADHD medication [Active]; ll3 - PMHx: 20:20 adhd; Asthma; Sleep apnea; ll3 - PSHx: 20:20 None; ll3 - Immunization history:: Client reports receiving the 2nd dose of the Covid vaccine. - Social history:: Smoking status: Patient denies any tobacco usage or history of. Screenin:00 [facility] ED Fall Risk Assessment (Adult) Score/Fall Risk Level 0 - 2 = Low Risk. eh3 22:09 Abuse screen: Denies threats or abuse. Denies injuries from another. Nutritional ha1 screening: No deficits noted. Tuberculosis screening: No symptoms or risk factors identified. Assessment: 21:00 General: Appears in no apparent distress. uncomfortable. Pain: Denies pain. Neuro: eh3 Level of Consciousness is awake, alert, obeys commands, Oriented to person, place, time, situation. Cardiovascular: Capillary refill < 3 seconds Patient's skin is warm and dry. Rhythm is regular. Respiratory: Airway is patent Respiratory effort is even, unlabored, Respiratory pattern is regular, symmetrical, Breath sounds are coarse bilaterally. Respiratory: Reports shortness of breath at rest labored breathing. GI: Abdomen is round non-distended. : No signs and/or symptoms were reported regarding the genitourinary system. EENT: No signs and/or symptoms were reported regarding the EENT system. EENT: Reports nasal congestion. Derm: No signs and/or symptoms reported regarding the dermatologic system. Musculoskeletal: No signs and/or symptoms reported regarding the musculoskeletal system. 22:08 Reassessment: Patient and/or family updated on plan of care and expected duration. Pain ha1 level reassessed. Patient is alert, oriented x 3, equal unlabored respirations, skin warm/dry/pink. Patient states feeling better. Patient states symptoms have improved. Vital Signs: 20:16 BP 134 / 73; Pulse 101; Resp 20; Temp 99.2(O); Pulse Ox 100% on R/A; Weight 172.37 kg ll3 (R); Height 5 ft. 0 in. (152.40 cm) (R); Pain 0/10; 20:16 Body Mass Index 74.21 (172.37 kg, 152.40 cm) ll3 ED Course: 20:07 Patient arrived in ED. ja2 20:09 [facility]C [facility] snw 20:09 Gael Diggs DO is Attending Physician. snw 20:15 Abbi Costa, RN is Primary Nurse. eh3 20:20 Triage completed. ll3 20:20 Arm band placed on Patient placed in an exam room, on a stretcher, on pulse oximetry. ll3 21:00 Patient has correct armband on for positive identification. Placed in gown. Bed in low eh3 position. Call light in reach. Side rails up X2. Adult w/ patient. Pulse ox on. NIBP on. 21:08 COVID-19/FLU A+B Sent. ll3 22:12 No provider procedures requiring assistance completed. Patient did not have IV access eh3 during this emergency room visit. Administered Medications: 21:08 Drug: predniSONE 40 mg Route: PO; ll3 22:00 Follow up: Response: No adverse reaction eh3 21:08 Drug: Pepcid (famotidine) 20 mg Route: PO; ll3 22:00 Follow up: Response: No adverse reaction eh3 21:08 Drug: Albuterol 2.5 mg Route: Inhalation; ll3 22:00 Follow up: Response: Wheezing diminished eh3 21:50 Drug: Magnesium 400 mg Route: PO; ha1 22:07 Follow up: Response: No adverse reaction ha1 21:50 Drug: Zithromax (azithromycin) 500 mg Route: PO; ha1 22:07 Follow up: Response: No adverse reaction ha1 Medication: 22:11 VIS not applicable for this client. 3 Outcome: 21:53 Discharge ordered by . snisaiah 22:12 Discharged to home ambulatory, with family. 3 22:12 Condition: stable 22:12 Discharge instructions given to patient, Instructed on discharge instructions, follow up and referral plans. medication usage, Demonstrated understanding of instructions, follow-up care, medications, Prescriptions given X 5 22:13 Patient left the ED. 3 Signatures: Carla Ramsey, WORK COUNSELOR-C WORK COUNSELOR-Csnw Judith Godinez Lynsea, RN RN 3 Abbi Costa, HADLEY RN 3 Judy Salcedo RN RN 1
[2022-09-17] MEDS ORDERED: MAGNESIUM OXIDE 400 MG TAB ONE (22:01)
[2022-09-17 22:17] VITALS: BP 134/73; TEMP 99.2; O2SAT 100
== END 2022-09-17 22:13 | disposition home or self-care (01) ==
LOC: ER 20:04
DX: J45.901 Unspecified asthma with (acute) exacerbation (principal); Z20.822 Contact with and (suspected) exposure to COVID-19; F90.9 Attention-deficit hyperactivity disorder, unspecified type
CPT/HCPCS: 0240U; 71046; 99284; J7512; J7613

== ENCOUNTER 2024-01-17 17:11 | Emergency (ER) | payer OTHER, SELFPAY ==
[2024-01-17] MEDS ORDERED: NA CHLORIDE 0.9% 1,000 ML ONE (17:27)
--- OUTSIDE RECORDS SUMMARY | 2024-01-17 17:27 | XMS REPORT | Continuity of Care Document ---
Author Name Unknown Address [address] [facility] [place] [address] [facility] thconnect Address [address] [facility] [place] [address] Care Team Providers Care Drapery Hand Name Role Phone JERAD GEORGE Attending Clinician Unavailable PL, TECH 1 Attending Clinician Unavailable MD OANH Attending Clinician UnavailAAKASH Medley Attending Clinician Unavailable LAB90 Attending Clinician Unavailable Alyce Thakur MD Attending Clinician [phone] Problems Condition Name Condition Details Condition Category Status Onset Date Resolution Date Last Treatment Date Treating Clinician Comments Source Right wrist pain Right wrist pain Disease Active 2021-08 00:00: 00 Eugenie Seybold - Externa l Attention deficit hyperactiv ity disorder (ADHD), predominan tly inattentiv e type Attention deficit hyperactiv ity disorder (ADHD), predominan tly inattentiv e type Disease Active 2021-08 00:00: 00 Eugenie Seybold - Externa l Mild persistent asthma without complicati on (HHS-HCC) Mild persistent asthma without complicati on (HHS-HCC) Disease Active 04-28 00:00: 00 Eugenei Seybold - Externa l Seasonal allergic rhinitis due to pollen Seasonal allergic rhinitis due to pollen Disease Active 04-28 00:00: 00 Eugenie Seybold - Externa l AALIYAH (obstructi ve sleep apnea) AALIYAH (obstructi ve sleep apnea) Disease Active 04-28 00:00: 00 Eugenie Lara - Externa l Class 3 severe obesity due to excess calories without serious comorbidit y with body mass index (BMI) of 50.0 to 59.9 in adult Class 3 severe obesity due to excess calories without serious comorbidit y with body mass index (BMI) of 50.0 to 59.9 in adult Disease Active 04-28 00:00: 00 Eugenie Langfordold - Externa l Chronic cough Chronic cough Disease Active 04-28 00:00: 00 Eugenie Langfordold - Externa l No known active problems No known active problems Disease Eugenie Lara Allergies, Adverse Reactions, Alerts Allergy Name Allergy Type Status Severity Reaction(s) Onset Date Inactive Date Treating Clinician Comments Source Seasonal Ic Propensi ty to adverse reaction s Active Shortness of Breath 03-13 00:00: 00 Eugenie Langfordold - Externa l Social History Social Habit Start Date Stop Date Quantity Comments Source Gender identity 2021-08-09 14:16:53 Identifies as male gender (finding) Eugenie Langfordold - External Sexual orientation 2021-08-09 14:16:53 Heterosexual (finding) Eugenie Langfordold - External History SDOH Alcohol Frequency Eugenie bell - External History SDOH Alcohol Std Drinks Eugenie sauer - External History SDOH Alcohol Binge Eugenie Lara - External Exposure to SARS-CoV-2 (event) Not sure Eugenie sauer Alcohol intake 2023-07-05 00:00:00 2023-07-05 00:00:00 Current drinker of alcohol (finding) Eugenie Lara - External History of Social function 2023-04-23 00:00:00 2023-04-23 00:00:00 Eugenie Lara - External Tobacco use and exposure 2022-04-28 00:00:00 2022-04-28 00:00:00 Smokeless tobacco non-user Eugenie Borrego External Alcohol Comment 2022-04-28 00:00:00 2022-04-28 00:00:00 rarely Eugenie Borrego External Education - What is the highest level of school you have completed or the highest degree you have received? 2022-04-28 00:00:00 2022-04-28 00:00:00 Associate degree: academic program Eugenie Campbell Sex Assigned At 1990 00:00:00 1990 00:00:00 M Eugenie Campbell Smoking Status Start Date Stop Date Source Never smoked tobacco Eugenie Campbell Medications Ordered Medication Name Filled Medication Name Start Date Stop Date Current Medication? Ordering Clinician Indication Dosage Frequency Signature (SIG) Comments Components Source Cetirizine 10 MG oral Tablet 2022-08 14:56: 27 Yes 10mg Take 1 tablet (10 mg total) by mouth daily. Eugenie rasmussen Methylpheni date HCl 36 MG oral Tab CR 2022-08 00:00: 00 Yes [id number] 36mg Take 1 tablet (36 mg total) by mouth every morning. Eugenie rasmussen Cetirizine 10 MG oral Tablet 03-28 10:14: 01 Yes 10mg Take 1 tablet (10 mg total) by mouth daily. Eugenie rasmussen Methylpheni date HCl 36 MG oral Tab CR 03-28 00:00: 00 07-05 00:00 :00 No [id number] 36mg Take 1 tablet (36 mg total) by mouth every morning. Eugenie rasmussen Cetirizine 10 MG oral Tablet 12-26 09:59: 29 Yes 10mg Take 1 tablet (10 mg total) by mouth daily Eugenie rasmussen Methylpheni date HCl 36 MG oral Tab CR 12-26 00:00: 00 Yes [id number] 36mg Take 1 tablet (36 mg total) by mouth every morning Eugenie rasmussen Mupirocin (BACTROBAN) 2 % apply externally Ointment 12-26 00:00: 00 Yes [id number] Apply 1 applicatio n. topically 2 times daily Eugenie rasmussen Triamcinolo ne Acetonide 0.1 % apply externally Cream 12-26 00:00: 00 01-24 04:59 :00 No [id number] Apply to irritated skin twice daily for 14 days Eugenie rasmussen Doxycycline Hyclate 100 MG oral Capsule 12-26 00:00: 00 01-03 04:59 :00 No [id number] 100mg Take 1 capsule (100 mg total) by mouth 2 times daily for 7 days Eugenie rasmussen FLUTICASONE PROPIONATE, NASAL, 50 MCG/ACT nasal Suspension 09-28 09:54: 47 09-28 00:00 :00 No 1{spray } Use 1 spray in each nostril daily Eugenie rasmussen Fluticasone -Salmeterol (Advair Diskus) 250-50 MCG/ACT inhalation AEROSOL POWDER, BREATH ACTIVATED 09-28 00:00: 00 Yes [id number] 1{puff} Inhale 1 puff into the lungs 2 times daily Eugenie rasmussen FLUTICASONE PROPIONATE, NASAL, 50 MCG/ACT nasal Suspension 09-28 00:00: 00 Yes [id number] 50ug Use 1 spray (50 mcg total) in each nostril daily Eugenie rasmussen Montelukast (Singulair) 10 MG oral Tablet tablet 09-28 00:00: 00 Yes [id number] 10mg Take 1 tablet (10 mg total) by mouth nightly Eugenie rasmussen Methylpheni date HCl 36 MG oral Tab CR 09-28 00:00: 00 12-26 00:00 :00 No [id number] 36mg Take 1 tablet (36 mg total) by mouth every morning Eugenie rasmussen Azithromyci n 500 MG oral Tablet 09-18 00:00: 00 09-28 00:00 :00 No 1{tbl} Take 1 tablet by mouth daily Eugenie rasmussen Cetirizine 10 MG oral Tablet 2021-08 09:28: 30 Yes 10mg Take 10 mg by mouth daily Eugenie rasmussen FLUTICASONE PROPIONATE, NASAL, 50 MCG/ACT nasal Suspension 2021-08 09:28: 30 Yes 1{spray } Use 1 spray in each nostril daily Eugenie rasmussen Methylpheni date HCl 36 MG oral Tab CR 2021-08 00:00: 00 Yes [id number] 36mg Take 1 tablet (36 mg total) by mouth every morning Eugenie rasmussen predniSONE (DELTASONE) 10 MG oral tablet 2021-08 00:00: 00 Yes [id number] 9100 10mg Take 1 tablet (10 mg total) by mouth daily Eugenie rasmussen Methylpheni date HCl 27 MG oral Tab CR 2021-08 00:00: 00 06-23 00:00 :00 No [id number] 27mg Take 1 tablet (27 mg total) by mouth every morning Eugenie rasmussen Famotidine (Pepcid) 20 MG oral tablet 04-28 00:00: 00 Yes [id number] 20mg Take 1 tablet (20 mg total) by mouth 2 times daily Eugenie rasmussen predniSONE (DELTASONE) 10 MG oral tablet 04-28 00:00: 00 Yes [id number] 10mg Take 1 tablet (10 mg total) by mouth daily Eugenie rasmussen Benzonatate (Tessalon Perles) 100 MG oral Capsule 04-28 00:00: 00 Yes [id number] 100mg [id number] 3D Take 1 capsule (100 mg total) by mouth 3 times daily as needed for cough Eugenie rasmussen Fluticasone -Salmeterol 113-14 MCG/ACT inhalation AEROSOL POWDER, BREATH ACTIVATED 04-28 00:00: 00 09-28 00:00 :00 No [id number] 1{puff} Inhale 1 puff into the lungs 2 times daily Eugenie rasmussen Nitrofurant oin Monohyd Macro (Macrobid) 100 MG oral Capsule 03-13 00:00: 00 04-28 00:00 :00 No [id number] 100mg Take 1 capsule (100 mg total) by mouth 2 times daily Eugenie rasmussen methylPREDN ISolone 4 MG oral Tablet Therapy Pack 08-09 00:00: 00 Yes [id number] 1{tayler} Take 1 tayler by mouth See Admin Instructio ns Use as directed Eugenie Lara Albuterol HFA 108 (90 Base) MCG/ACT IN AERS 08-09 00:00: 00 Yes [id number] 2{puff} Q4H Inhale 2 puffs into the lungs every 4 hours as needed for wheezing or shortness of breath Eugenie Lara - Externa l Azithromyci n 250 MG oral Tablet 08-09 00:00: 00 08-15 05:59 :00 No [id number] Take 2 tablets by mouth on day 1 then 1 tablet by mouth daily for 4 days thereafter . Eugenie Lara Immunizations Ordered Immunization Name Filled Immunization Name Date Status Comments Source Influenza, Injectable, Mdck, Quadrivalent With Preservative Unknown Completed Eugenie Lara - External Pneumococcal Vaccine, Conjugate 20 Unknown Completed Eugenie Lara - External Vital Signs Vital Name Observation Time Observation Value Comments S ource Heart rate 2023-07-05 20:55:00 91 /min Julio y Seybold - External Body temperature 2023-07-05 20:55:00 36.89 Shahla Eugenie ybold - External Respiratory rate 2023-07-05 20:55:00 15 /min Eugenie Seybold - External Body height 2023-07-05 20:55:00 177.8 cm Aida ey Seybold - External Body weight 2023-07-05 20:55:00 177.81 kg Aida ey Seybold - External BMI 2023-07-05 20:55:00 56.25 kg/m2 Aida ey Seybold - External Oxygen saturation in Arterial blood by Pulse oximetry 2023-07-05 20:55:00 99 /min Eugenie Langfordo ld - External Body temperature 2023-03-28 15:11:00 36.61 Shahla Eugenie ybold - External Respiratory rate 2023-03-28 15:11:00 15 /min Eugenie Seybold - External Body height 2023-03-28 15:11:00 177.8 cm Aida ey Seybold - External Body weight 2023-03-28 15:11:00 179.171 kg Aida ey Seybold - External BMI 2023-03-28 15:11:00 56.68 kg/m2 Aida ey Seybold - External Oxygen saturation in Arterial blood by Pulse oximetry 2023-03-28 15:11:00 99 /min Eugenie Seybo ld - External Systolic blood pressure 2023-03-28 15:11:00 107 mm[Hg] Eugenie Seybo ld - External Diastolic blood pressure 2023-03-28 15:11:00 72 mm[Hg] Eugenie Seybo ld - External Heart rate 2023-03-28 15:11:00 80 /min Kelse y Seybold - External Systolic blood pressure 2022-12-26 14:56:00 128 mm[Hg] Eugenie Seybo ld - External Diastolic blood pressure 2022-12-26 14:56:00 76 mm[Hg] Eugenie Seybo ld - External Heart rate 2022-12-26 14:56:00 89 /min Kelse y Seybold - External Body temperature 2022-12-26 14:56:00 36.89 Shahla Eugenie Seybold - External Respiratory rate 2022-12-26 14:56:00 19 /min Eugenie Seybold - External Body height 2022-12-26 14:56:00 177.8 cm Aida ey Seybold - External Body weight 2022-12-26 14:56:00 177.81 kg Aida ey Seybold - External BMI 2022-12-26 14:56:00 56.25 kg/m2 Aida ey Seybold - External Oxygen saturation in Arterial blood by Pulse oximetry 2022-12-26 14:56:00 97 /min Eugenie Seybo ld - External BMI 2022-09-28 15:42:00 55.24 kg/m2 Aida ey Seybold - External Oxygen saturation in Arterial blood by Pulse oximetry 2022-09-28 15:42:00 99 /min Eugenie Seybo ld - External Systolic blood pressure 2022-09-28 15:42:00 123 mm[Hg] Eugenie Seybo ld - External Diastolic blood pressure 2022-09-28 15:42:00 71 mm[Hg] Eugenie Seybo ld - External Heart rate 2022-09-28 15:42:00 87 /min Kelse y Seybold - External Body temperature 2022-09-28 15:42:00 36.67 Shahla Eugenie Seybold - External Respiratory rate 2022-09-28 15:42:00 14 /min Eugenie Seybold - External Body height 2022-09-28 15:42:00 177.8 cm Aida ey Seybold - External Body weight 2022-09-28 15:42:00 174.635 kg Aida ey Seybold - External Systolic blood pressure 2022-06-23 15:25:00 120 mm[Hg] Eugenie Seybo ld - External Diastolic blood pressure 2022-06-23 15:25:00 58 mm[Hg] Eugenie Seybo ld - External Heart rate 2022-06-23 15:25:00 93 /min Kelse y Seybold - External Body temperature 2022-06-23 15:25:00 36.78 Shahla Eugenie Seybold - External Respiratory rate 2022-06-23 15:25:00 16 /min Eugenie Seybold - External Body height 2022-06-23 15:25:00 177.8 cm Aida ey Seybold - External Body weight 2022-06-23 15:25:00 187.336 kg Aida ey Seybold - External BMI 2022-06-23 15:25:00 59.26 kg/m2 Aida ey Seybold - External Systolic blood pressure 2022-04-28 13:19:00 118 mm[Hg] Eugenie Seybo ld - External Diastolic blood pressure 2022-04-28 13:19:00 62 mm[Hg] Eugenie Seybo ld - External Heart rate 2022-04-28 13:19:00 98 /min Kelse y Seybold - External Body temperature 2022-04-28 13:19:00 36.89 Shahla Eugenie Seybold - External Respiratory rate 2022-04-28 13:19:00 14 /min Eugenie Seybold - External Body height 2022-04-28 13:19:00 177.8 cm Aida ey Seybold - External Body weight 2022-04-28 13:19:00 180.985 kg Aida ey Seybold - External BMI 2022-04-28 13:19:00 57.25 kg/m2 Aida ey Seybold - External Encounters Start Date/Time End Date/Time Encounter Type Admission Type Attending [facility] Care Department Encounter ID Source 2024-01-18 16:30:00 2024-01-18 16:30:00 Outpatient JERAD GEORGEPERI BANGURA [id number] Eugenie Barrettshaila 2024-01-07 00:00:00 2024-01-07 00:00:00 Outpatient JERAD GEORGE EUGENIE BANGURA [id number] Eugenie Lara 2023-10-05 10:45:00 2023-10-05 10:45:00 Outpatient JERAD GEORGE EUGENIE BANGURA [id number] Eugenie Lara 2023-09-13 00:00:00 2023-09-13 00:00:00 Outpatient JERAD GEORGE EUGENIE BANGURA [id number] [facility]23-08-01 14:48:10 2023-08-01 14:48:10 Outpatient SFA SFA [id number] Royal Allred 2023-07-05 14:45:00 2023-07-05 14:45:00 Outpatient JERAD GEORGE EUGENIE BANGURA [id number] Eugenie [facility] 2023-06-29 09:30:00 2023-06-29 09:30:00 Outpatient JERAD GEORGE EUGENIE BANGURA [id number] Eugenie [facility] 2023-04-20 10:00:00 2023-04-20 10:00:00 Outpatient VANIA WAITE [id number] Eugenie [facility] 2023-04-16 00:00:00 2023-04-16 00:00:00 Outpatient MD EUGENIE HOPKINS [id number] Eugenie cristiane 2023-04-13 15:30:00 2023-04-13 15:30:00 [facility] [id number] [facility]:00:00 2023-04-13 00:00:00 [facility] [id number] [facility]23-04-12 00:00:00 2023-04-12 00:00:00 Outpatient MD EUGENIE HOPKINS [id number] Eugenie Lara 2023-04-10 00:00:00 2023-04-10 00:00:00 Outpatient PREZAS, JERAD BANGURA [id number] Eugenie Lara 2023-03-28 10:15:00 2023-03-28 10:15:00 Outpatient PREZAS, JERAD BANGURA [id number] Eugenie Lara 2022-12-26 10:00:00 2022-12-26 10:00:00 Outpatient PREZAS, JERAD BANGURA [id number] Eugenie Lara 2022-09-28 09:45:00 2022-09-28 09:45:00 Outpatient PREZAS, JERAD BANGURA [id number] Eugenie Lara 2022-09-22 08:30:00 2022-09-22 08:30:00 Outpatient PREZAS, JERAD BANGURA EUGENIE [id number] Eugenie Lara 2022-06-23 09:15:00 2022-06-23 09:15:00 Outpatient PREZAS, JERAD BANGURA EUGENIE [id number] Eugenie Lara 2022-05-26 08:45:00 2022-05-26 08:45:00 Outpatient PREZAS, JERAD BANGURA [id number] Eugenie Lara 2022-04-28 08:15:00 2022-04-28 08:15:00 Outpatient PREZAS, JERAD BANGURA EUGENIE [id number] Eugenie Lara 2022-03-13 15:45:00 2022-03-13 15:45:00 Outpatient LAB90 EUGENIE BANGURA [id number] Eugenie Lara 2022-03-13 15:00:00 2022-03-13 15:30:00 Office Visit Alyce Thakur [id number] Eugenie Lara 2021-08-09 14:30:00 2021-08-09 14:37:23 Telemedici ne Alyce Thakur Jackson [id number] Eugenie Lara
[2024-01-17 17:49] LABS: Absolute Eosinophils 0.2 K/uL (0-0.5); Absolute Lymphocytes (CBC) 0.4 K/uL (0.7-4.9); Absolute Monocytes 0.5 K/uL (0.1-1.3); Absolute Neutrophil 10.4 K/uL (1.8-8.0); Basophils % 0.4 % (0-1.3); Eosinophils % 1.4 % (0-4.4); Hematocrit 43.2 % (39.6-49.0); Hemoglobin 14.3 g/dL (13.6-17.9); Lymphocytes % 3.5 % (15.3-44.8); MCH 27.8 pg (27.0-35.0); MCV 84.2 fL (80-100); MPV 7.2 fL (7.6-11.3); Monocytes % 4.5 % (3.3-12.3); Neutrophils % 90.2 % (41.7-73.7); Platelets 266 thou/uL (152-406); RBC Red Blood Cell Count 5.13 M/uL (4.33-5.43); Red Cell Distribution Width 14.4 % (12.1-15.2)
[2024-01-17 17:56] LABS: PT Prothrombin Time 13.4 SECONDS (9.5-12.5); PTT, Activated Partial Thromb 35.1 SECONDS (24.3-36.9); Protime INR 1.23
[2024-01-17] MEDS ORDERED: IBUPROFEN 400 MG TAB ONE (17:57)
[2024-01-17 18:08] LABS: Specific Gravity 1.024 (1.005-1.030); Sqamous Epithelial <5 /HPF (None Seen); Urine Bacteria None Seen /HPF (<20); Urine Bilirubin NEGATIVE (Negative); Urine Blood Trace (Negative); Urine Clarity Extremely Turbid (Clear); Urine Color Yellow (Yellow); Urine Culture Reflex Order NOT NEEDED; Urine Glucose NEGATIVE (Negative); Urine Ketones NEGATIVE (Negative); Urine Microscopic Reflex YN ORDER UMIC; Urine Mucus Slight /HPF (None Seen); Urine Nitrite NEGATIVE (Negative); Urine Protein 1+ (Negative); Urine RBC <5 /HPF (None Seen); Urine Urobilinogen Normal (Normal); Urine pH 5.5 (5.0-7.0)
[2024-01-17 18:12] LABS: Albumin 3.5 g/dL (3.4-5.0); Albumin/Globulin Ratio 0.7 (1.1-1.8); Anion Gap 8.8 mEq/L (5.0-15.0); Bilirubin Total 0.5 mg/dL (0.2-1.0); Potassium 3.8 mEq/L (3.5-5.1); Protein, Total 8.5 g/dL (6.4-8.2)
[2024-01-17 18:38] LABS: SARS-CoV-2 Antigen CONTROL BLUE LINE VIS/BG OK; SARS-CoV-2 Antigen Rapid Res Negative (Negative)
--- NOTE | 2024-01-17 19:47 | EDPHYS ---
Physician Documentation [facility] Name: Abhishek Warren Age: 33 yrs Sex: Male : 1990 Arrival Date: 01/17/2024 Time: 17:11 Bed 17 Private MD: ED Physician Tip Anglin HPI: 01/16 23:40 This 33 yrs old Male presents to ER via Ambulatory with complaints of Nausea, kb Vomiting, Fever. 23:40 Pt is a 33 year old male who presents for headache, nausea, vomiting, urinary frequency kb and fever that started this morning and has gotten worse throughout the day. Denies diarrhea, abd pain, flank pain, dysuria, hematuria. . Historical: - Allergies: 17:19 No Known Allergies; as6 - PMHx: 17:19 adhd; Asthma; Sleep Apnea; as6 - PSHx: 17:19 None; as6 - Immunization history:: Adult Immunizations up to date. - Infectious Disease History:: Denies. - Social history:: Smoking status: Patient denies any tobacco usage or history of. ROS: 23:40 Constitutional: As per HPI kb Exam: 23:40 Constitutional: This is a well developed, well nourished patient who is awake, alert, kb and in no acute distress. Head/Face: Normocephalic, atraumatic. ENT: Moist Mucous membranes Cardiovascular: Regular rate Respiratory: Respirations even and unlabored. No increased work of breathing. Talking in full sentences Abdomen/GI: Soft, non-tender. No distention Skin: Warm, dry with normal turgor. Normal color. MS/ Extremity: Pulses equal, no cyanosis. Neurovascular intact. Full, normal range of motion. Neuro: Awake and alert, GCS 15, oriented to person, place, time, and situation. Moves all extremities. Normal gait. 01/17 00:07 ECG was reviewed by the Attending Physician. kb Vital Signs: 01/16 17:16 BP 101 / 68; Pulse 122; Resp 18; Temp 99.4(TE); Pulse Ox 95% ; Weight 172.37 kg; Height as6 5 ft. 10 in. ; Pain 2/10; 17:45 BP 117 / 54; Pulse 110; Resp 28 S; Temp 100.6(O); Pulse Ox 97% on R/A; aa5 18:37 BP 108 / 55; Pulse 106; Resp 24 S; Temp 100.8(O); Pulse Ox 94% on R/A; aa5 19:55 BP 115 / 58; Pulse 104; Resp 16 S; Temp 99.2(O); Pulse Ox 92% on R/A; ha1 17:16 Body Mass Index 54.52 (172.37 kg, 177.8 cm) as6 17:16 Pain Scale: Adult as6 17:45 TEMPLER HEAD notified of increased temperature. aa5 MDM: 17:17 Patient medically screened. kb 23:42 Differential diagnosis: gastroenteritis, flu, covid, viral syndrome. Data reviewed: kb vital signs, nurses notes. Consideration of Admission/Observation Escalation of care including admission/observation considered. admission considered but labs reassuring, no abd tenderness upon exam. Counseling: I had a detailed discussion with the patient and/or guardian regarding the historical points, exam findings, and any diagnostic results supporting the discharge/admit diagnosis, lab results, the need for outpatient follow up, a family practitioner, to return to the emergency department if symptoms worsen or persist or if there are any questions or concerns that arise at home. 01/16 17:20 Order name: Blood Culture Adult (2) kb 01/16 17:20 Order name: CBC with Diff; Complete Time: 17:57 kb 01/16 17:20 Order name: CMP; Complete Time: 18:13 kb 01/16 17:20 Order name: Lactate w/ 2H reflex if indic.; Complete Time: 18:42 kb 01/16 17:20 Order name: Protime (+inr); Complete Time: 18:00 kb 01/16 17:20 Order name: Ptt, Activated; Complete Time: 18:00 kb 01/16 17:20 Order name: Urinalysis w/ reflexes; Complete Time: 18:09 kb 01/16 17:20 Order name: Flu; Complete Time: 18:42 kb 01/16 17:20 Order name: SARS-COV-2 Antigen Rapid; Complete Time: 18:42 kb 01/16 17:20 Order name: EKG; Complete Time: 17:21 kb 01/16 17:20 Order name: Accucheck; Complete Time: 17:59 kb 01/16 17:20 Order name: Cardiac monitoring; Complete Time: 18:17 kb 01/16 17:20 Order name: EKG - Nurse/Tech; Complete Time: 17:59 kb 01/16 17:20 Order name: IV Saline Lock - Large Bore; Complete Time: 17:49 kb 01/16 17:20 Order name: Labs collected and sent; Complete Time: 17:49 kb 01/16 17:20 Order name: O2 Per Protocol; Complete Time: 18:17 kb 01/16 17:20 Order name: O2 Sat Monitoring; Complete Time: 17:22 kb 01/16 17:20 Order name: Vital Signs; Complete Time: 17:49 kb 01/16 19:25 Order name: Vital Signs; Complete Time: 19:55 kb EC/14 00:07 Rate is 110 beats/min. Rhythm is regular. QRS Arabi is Normal. TX interval is normal at kb 170 msec. QRS interval is normal at 68 msec. QT interval is normal at 449 msec. Administered Medications: 01/16 17:50 Drug: NS 0.9% IV 1000 ml IV at 1000 ml once Route: IV; Rate: 1000 ml; Site: right aa5 antecubital; 20:00 Follow up: Response: No adverse reaction; IV Status: Completed infusion; IV Intake: ha1 1000ml 17:59 Drug: Ibuprofen PO 800 mg PO once Route: PO; aa5 19:00 Follow up: Response: No adverse reaction; Temperature is decreased ha1 Disposition Summary: 01/17/24 19:46 Discharge Ordered Notes: Location: Home kb Condition: Stable kb Diagnosis - Viral infection, unspecified kb Followup: kb - With: Emergency Department - When: As needed - Reason: Worsening of condition Followup: kb - With: Private Physician - When: 2 - 3 days - Reason: Recheck today's complaints, Continuance of care, Re-evaluation by your physician Discharge Instructions: - Discharge Summary Sheet kb - Viral Illness, Adult kb Forms: - Work release form kb - Medication Reconciliation Form kb - Antibiotic Education kb - Prescription Opioid Use kb - Patient Portal Instructions kb - Leadership Thank You Letter kb Prescriptions: - Zofran 4 mg Oral tablet - take 1 tablet ORAL route every 6 hours As needed; 12 tablet; Refills: 0, kb Product Selection Permitted Signatures: Dispatcher [employer] Cece Hood FNP-C FNP-Yumiko Santana, RN RN aa5 Rory Lebron RN RN as6 Judy Salcedo RN ha1 Corrections: (The following items were deleted from the chart) 17:21 17:21 BLOOD CULTURE*+BA.LAB.BRZ ordered. EDIL EDMS 17:21 17:21 CBC+H.LAB.BRZ ordered. EDIL EDMS 17:21 17:21 COMPREHENSIVE METABOLIC PANEL+C.LAB.BRZ ordered. EDIL EDMS 17:21 17:21 LACTATE+C.LAB.BRZ ordered. EDIL EDMS 17:21 17:21 PROTIME (+INR)+COAG.LAB.BRZ ordered. EDIL EDMS 17:21 17:21 PTT, ACTIVATED+COAG.LAB.BRZ ordered. EDIL EDMS 17:21 17:21 Urinalysis+U.LAB.BRZ ordered. EDIL EDMS 17:21 17:21 Influenza Screen (A \T\ B)+BA.LAB.BRZ ordered. EDIL EDMS 17:21 17:21 SARS-COV-2 Antigen Rapid+I.LAB.BRZ ordered. EDIL EDIL 23:43 23:42 Counseling: I had a detailed discussion with the patient and/or guardian kb regarding the historical points, exam findings, and any diagnostic results supporting the discharge/admit diagnosis, lab results, radiology results, the need for outpatient follow up, a family practitioner, to return to the emergency department if symptoms worsen or persist or if there are any questions or concerns that arise at home, kb
--- NOTE | 2024-01-17 19:47 | ER ---
Nurse's Notes [facility] Name: Abhishek Warren Age: 33 yrs Sex: Male : 1990 Arrival Date: 01/17/2024 Time: 17:11 Bed 17 Private MD: Diagnosis: Viral infection, unspecified Presentation: 01/16 17:16 Chief complaint: Patient states: headache, fever, nausea, vomiting, urinary frequency. as6 Coronavirus screen: At this time, the client does not indicate any symptoms associated with coronavirus-19. Ebola Screen: No symptoms or risks identified at this time. Initial Sepsis Screen: Does the patient meet any 2 criteria? No. Patient's initial sepsis screen is negative. Does the patient have a suspected source of infection? No. Patient's initial sepsis screen is negative. Risk Assessment: Do you want to hurt yourself or someone else? Patient reports no desire to harm self or others. Onset of symptoms was January 17, 2024. 17:16 Method Of Arrival: Ambulatory as6 17:16 Acuity: PHANI 3 as6 Historical: - Allergies: 17:19 No Known Allergies; as6 - PMHx: 17:19 adhd; Asthma; Sleep Apnea; as6 - PSHx: 17:19 None; as6 - Immunization history:: Adult Immunizations up to date. - Infectious Disease History:: Denies. - Social history:: Smoking status: Patient denies any tobacco usage or history of. Screenin:30 [facility] ED Fall Risk Assessment (Adult) History of falling in the last 3 months, aa5 including since admission No falls in past 3 months (0 pts) Confusion or Disorientation No (0 pts) Intoxicated or Sedated No (0 pts) Impaired Gait No (0 pts) Mobility Assist Device Used No (0 pt) Altered Elimination No (0 pt) Score/Fall Risk Level 0 - 2 = Low Risk Oriented to surroundings, Maintained a safe environment, Educated pt \T\ family on fall prevention, incl call for assistance when getting out of bed. Abuse screen: Denies threats or abuse. Nutritional screening: No deficits noted. Tuberculosis screening: No symptoms or risk factors identified. Assessment: 17:30 General: Appears uncomfortable, Behavior is calm, cooperative, Reports fever. Pain: aa5 Denies pain. Neuro: Level of Consciousness is awake, alert, obeys commands, Oriented to person, place, time, situation, Reports pressure to forehead . Cardiovascular: Heart tones S1 S2 present Rhythm is sinus tachycardia. Respiratory: Airway is patent Respiratory effort is even, unlabored, Respiratory pattern is regular, symmetrical. GI: Abdomen is obese, Bowel sounds present X 4 quads. Abd is non tender X 4 quads Reports nausea, vomiting, reports only slight diarrhea. Patient currently denies abdominal pain. : Reports urinary frequency. EENT: No signs and/or symptoms were reported regarding the EENT system. Derm: Skin is dry, Skin is normal, Skin temperature is hot. Musculoskeletal: Range of motion: intact in all extremities. 18:37 Reassessment: Pt sitting up in bed. . Neuro: Level of Consciousness is awake, alert, aa5 obeys commands, Oriented to person, place, time, situation. Respiratory: Airway is patent Respiratory effort is even, unlabored, Respiratory pattern is regular, symmetrical. Derm: Skin is dry, Skin is normal, Skin temperature is hot. 20:05 Reassessment: Patient and/or family updated on plan of care and expected duration. Pain ha1 level reassessed. Patient is alert, oriented x 3, equal unlabored respirations, skin warm/dry/pink. Patient states feeling better. Patient states symptoms have improved. Vital Signs: 17:16 BP 101 / 68; Pulse 122; Resp 18; Temp 99.4(TE); Pulse Ox 95% ; Weight 172.37 kg; Height as6 5 ft. 10 in. ; Pain 2/10; 17:45 BP 117 / 54; Pulse 110; Resp 28 S; Temp 100.6(O); Pulse Ox 97% on R/A; aa5 18:37 BP 108 / 55; Pulse 106; Resp 24 S; Temp 100.8(O); Pulse Ox 94% on R/A; aa5 19:55 BP 115 / 58; Pulse 104; Resp 16 S; Temp 99.2(O); Pulse Ox 92% on R/A; ha1 17:16 Body Mass Index 54.52 (172.37 kg, 177.8 cm) as6 17:16 Pain Scale: Adult as6 17:45 [employer] notified of increased temperature. aa5 ED Course: 17:14 Patient arrived in ED. im 17:17 Cece Jacobs F[facility]-C is [facility]. kb 17:17 Tip Anglin MD is Attending Physician. kb 17:18 Triage completed. as6 17:19 Arm band placed on left wrist. as6 17:35 Inserted saline lock: 20 gauge in right antecubital area, using aseptic technique. aa5 17:37 Initial lab(s) drawn, by me, sent to lab. First set of blood cultures drawn. aa5 17:48 Second set of blood cultures drawn by me. aa5 17:50 Yumiko Torres RN is Primary Nurse. aa5 17:55 Urine collected: COVID swab sent to lab. Flu and/or RSV swab sent to lab. aa5 18:14 EKG done, by ED staff, reviewed by Cece BANUELOS. [id number] 18:15 Bed in low position. Call light in reach. Side rails up X 1. Side rails up X2. Pillow jg11 given. Client placed on continuous cardiac and pulse oximetry monitoring. NIBP monitoring applied. cardiac monitor on. Pulse ox on. NIBP on. 19:04 Report given to HADLEY Kim. aa5 20:05 No provider procedures requiring assistance completed. IV discontinued, intact, ha1 bleeding controlled, No redness/swelling at site. Pressure dressing applied. 20:06 Provided Education on: medication administration . ha1 Administered Medications: 17:50 Drug: NS 0.9% IV 1000 ml IV at 1000 ml once Route: IV; Rate: 1000 ml; Site: right aa5 antecubital; 20:00 Follow up: Response: No adverse reaction; IV Status: Completed infusion; IV Intake: ha1 1000ml 17:59 Drug: Ibuprofen PO 800 mg PO once Route: PO; aa5 19:00 Follow up: Response: No adverse reaction; Temperature is decreased ha1 Medication: 18:39 VIS not applicable for this client. aa5 Intake: 20:00 IV: 1000ml; Total: 1000ml. ha1 Outcome: 19:46 Discharge ordered by . kb 20:05 Discharged to home ambulatory, with family, ha1 20:05 Condition: stable 20:05 Discharge instructions given to patient, family, Instructed on discharge instructions, follow up and referral plans. medication usage, Demonstrated understanding of instructions, follow-up care, medications, Prescriptions given X 1, 20:06 Patient left the ED. ha1 Signatures: Cece Jacobs, SEASONAL RECRUITER-C SEASONAL RECRUITER-CkYumiko Griffith RN RN aa5 Rory Lebron RN RN as6 Judy Salcedo RN RN ha1 Sarah Parekh Jordan [email or web address] Corrections: (The following items were deleted from the chart) 18:38 18:37 Pulse 106bpm; Resp 24bpm; Spontaneous; Pulse Ox 94% RA; Temp 100.8F Oral; aa5 aa5 20:08 20:07 Response: No adverse reaction; IV Status: Completed infusion; IV Intake: 1000ml ha1 ha1 20:13 19:55 BP 115 / 48; Pulse 104bpm; Resp 16bpm; Spontaneous; Pulse Ox 92% RA; Temp 99.2F ha1 Oral; ha1
[2024-01-17 20:32] VITALS: BP 115/48; TEMP 99.2; O2SAT 92
--- NOTE | 2024-01-21 15:06 | EKG ---
Test Date: 2024-01-17 Test Time: 18:01:44 Dealer Relationship Manager: RHONDA MEASUREMENT RESULTS: Intervals: Rate: 110 WV: 170 QRSD: 68 QT: 332 QTc: 449 [place]: P: 30 WV: 170 QRS: 90 T: 9 INTERPRETIVE STATEMENTS: Sinus tachycardia Rightward axis Borderline ECG No previous ECG available for comparison Electronically Signed On 01-21-24 14:55:23 CDT by Abel Aranda
== END 2024-01-17 20:06 | disposition home or self-care (01) ==
LOC: ER 17:11
DX: B34.9 Viral infection, unspecified (principal); Z11.52 Encounter for screening for COVID-19
CPT/HCPCS: 36415; 80053; 81001; 83605; 85025; 85610; 85730; 87040; 87804; 87811; 93005; 96360; 96361; 99285; J7030